=== PATIENT | female | born 1930 | race Caucasian/White ===

== ENCOUNTER 2016-07-01 17:33 | Inpatient (IN) | payer MEDICARE, OTHER ==
--- NOTE | ~2016-07-01 | US77 ---
[facility] A Service of [facility] RADIOLOGY TEXT RESULTS PATIENT: YIFAN TAFOYA LOCATION: [facility] 330- : [birth year] UNIT #: [id number] AGE: [address]: Dior Mast MD SEX: F ORDER DR: [id number] [place] [id number] [facility]. [place], [place] [address] [id number] MR#: [id number] Acc #: [id number] NAME: YIFAN TAFOYA : 1930 SEX: F STUDY DATE/TIME: 07/02/2016 11:37 UNIT: [address] ROOM: [facility] STUDY DESCRIPTION: US Kidney Bilateral Complete Attending Physician: Sonal Raines M.D. Ordering Physician: Ed Casey Jackson M.D. Primary Care Physician: Primary Care Physician No MEDICAL IMAGING REPORT This report is preliminary unless electronic signature is present EXAM Bilateral renal sonogram, 07/02/2016 CLINICAL HISTORY 86-year-old female acute kidney injury, creatinine 5.9, complains of abdominal pain. History of diabetes, hypertension. FINDINGS Examination was technically limited due to patient's limited mobility. The kidneys suggest mild increased echogenicity which could reflect medical renal disease. No significant cortical atrophy. The right kidney measures 11.4 cm in length. The left kidney measures approximately 11.8 cm in length. No hydronephrosis. Left kidney demonstrates at least 2 anechoic areas compatible with cysts. No perinephric collection identified. The visualized bladder unremarkable. IMPRESSION 1. Mild increased echogenicity of the renal parenchyma bilaterally could reflect medical renal disease but no significant cortical atrophy. No hydronephrosis. 2. Two left renal cortical cysts, the largest measuring up to 5 cm. Dictated by... Freddie Stephen M.D. THIS IS AN ELECTRONICALLY VERIFIED REPORT Freddie Stephen M.D. at 07/03/2016 5:02 PM Chacha TD: 07/03/2016 00:31 JOB #: [id number] [facility] A Service of [facility] RADIOLOGY TEXT RESULTS PATIENT: YIFAN TAFOYA LOCATION: [facility] 330-01 : [birth year] UNIT #: [id number] AGE: [address]: Dior Mast MD SEX: F ORDER DR: MEDICAL IMAGING REPORT COPY
--- NOTE | ~2016-07-01 | HP ---
Unit #: [id number] #: [id number] Patient: YIFAN TAFOYA [id number] [address] [address] [id number] I MR#: [id number] NAME: YIFAN TAFOYA ROOM: 330 Age: 86 Sex: F Admission Date: 07/01/2016 : 1930 Attending Physician: Sonal Raines M.D. Primary Care Physician: Primary Care Physician No HISTORY AND PHYSICAL CHIEF COMPLAINT Anemia. HISTORY OF PRESENT ILLNESS The patient is an 86-year-old female, brought to the emergency room from the [facility] concerning for the anemia. The patient is a poor historian and history is obtained by speaking to the patient's daughter and son at the bedside. The patient was found to have an anemia with hemoglobin of 8 with a baseline around 10, and the urinary tract infection and the creatinine of 5.7 from the baseline. The patient complains of the abdominal pain and denies any urinary complaints. The patient denies any fever, chills, nausea or vomiting, chest pain or shortness of breath. The patient's family is unable to obtain any new medication started at the half-way and the patient denies any decrease in the oral intake. The patient also has a history of atrial fibrillation on Coumadin and the INR level is 2.8. PAST MEDICAL HISTORY 1. History of coronary artery disease. 2. Dysphagia. 3. Hypertension. 4. Diabetes. 5. Cerebrovascular accident with right-sided weakness. 6. History of C. difficile colitis. 7. Anemia. 8. Anxiety. 9. Peptic ulcer disease. PAST SURGICAL HISTORY 1. History of coronary artery bypass grafting. 2. Hysterectomy. 3. Back surgery. 4. Right knee replacement. 5. Heart valve repair. 6. Cataract bilateral surgery. ALLERGIES Allergic to penicillin, sulfa, codeine, and erythromycin, and Paxil. HOME MEDICATIONS She is on: 1. Isosorbide 2. Mag ox 3. Coreg Unit #: [id number] #: [id number] Patient: YIFAN TAFOYA 4. Xanax 5. Lipitor 6. Mirtazapine 7. Pantoprazole 8. Ferrous sulfate 9. Zoloft 10. Norvasc 11. Colace 12. Lasix 13. Aspirin 14. K-Dur 15. Tylenol 16. Ultram 17. Coumadin FAMILY HISTORY Reviewed and none. SOCIAL HISTORY The patient lives at the half-way and she is a lifelong nonsmoker. She does not drink alcohol or any illicit drug abuse. REVIEW OF SYSTEMS Fourteen point review of systems performed and only pertinent positive findings as described above, remaining are negative. PHYSICAL EXAMINATION GENERAL: The patient is lying on the bed, not in acute distress. VITALS: Temperature 97.8, pulse rate 82, respiratory 16, and blood pressure 128/61, and satting 97% at three liters per nasal cannula. HEENT: Head: Atraumatic and normocephalic. Pupils equal, round, reactive to light and accommodation. Extraocular movements are intact. Bilateral pallor and dry mucous membranes. NECK: Supple, no jugular venous distention. LUNGS: Decreased air entry at the bases. HEART: Regular rate and rhythm. ABDOMEN: Soft, positive bowel sounds. EXTREMITIES: Bilateral popliteal edema, +2 to +3. : The patient has a Chavez catheter. NEURO: The patient is alert, awake, and oriented. No gross focal motor deficit. DIAGNOSTIC STUDIES LABORATORY DATA: Glucose 132, BUN 70, creatinine 5.7, sodium 136, potassium 5, chloride 105, bicarb 24, calcium 7.7, total protein 6.5, albumin 2.8, total bili 1, AST 15, ALT 7, alkaline phosphatase 70. INR is 2.8. White blood count 5.3, hemoglobin 8, hematocrit 24.6, platelets 126. Urinalysis shows 3+ leukocyte esterase, 2+ protein, 3+ blood, and innumerable urine RBCs, and innumerable WBCs, and 4+ urine bacteria. IMAGING: No imaging studies done in the emergency room, will check the chest x-ray in the morning. ASSESSMENT/PLAN 1. Acute kidney injury with a creatinine of 5.7, and urinary tract infection. 2. Anemia. 3. Atrial fibrillation. Unit #: [id number] #: [id number] Patient: YIFAN TAFOYA 4. Hematuria. Plan to admit the patient inpatient to the telemetry and continue with the IV antibiotics with Rocephin and check the renal ultrasound to rule out obstruction and will have a renal consult, and hold the Coumadin and Lasix today and repeat the labs again in the morning, and PRBC if the hemoglobin goes down less than 8, and the patient is a DNR and further recommendations will follow. Dictated by Ana Casanova TD: 07/02/2016 10:09 JOB #: [id number] HISTORY AND PHYSICAL X X HISTORY AND PHYSICAL
--- NOTE | ~2016-07-01 | CO ---
Unit #: [id number] #: [id number] Patient: YIFAN TAFOYA [id number] [address] [place], [place] [address] [id number] I MR#: [id number] NAME: YIFAN TAFOYA. ROOM: 330 Age: 86 Sex: F Admission Date: 07/01/2016 : 1930 Attending Physician: Sonal Raines M.D. CONSULTATION REPORT The patient of Dr. Raines. REASON FOR CONSULTATION Increased creatinine. HISTORY OF PRESENT ILLNESS Ms. Tafoya was sent to ER from her residential because of abnormal laboratory findings including a hemoglobin of 8 and serum creatinine of 5.9. She had been bothered with nausea for 2 or 3 days. She has not noticed any blood in her bowel movements or nor has she vomited blood. She has not noticed any change in urine volume. She has had dry mouth, but only to a small extent. She has been more bothered with shortness of breath and that does seem worse on reclining. She spends much of her day sitting and has chronic, but worsening lower extremity swelling. She denies use of nonsteroidals. Home medications are noted to include Norvasc, Lipitor, Protonix, and furosemide 40 mg daily. She has some underlying diabetes and hypertension. She also has a history of coronary artery disease with 3-vessel bypass by her report as well as mitral and aortic valve replacements. She had a brother who had end-stage renal disease associated with diabetes mellitus. She denies gross hematuria or sensation of incomplete emptying. She denies dizziness or lightheadedness. She denies active chest pain, productive cough, fever, chills, or sweats. She is not aware of any liver disease. Creatinine was 5.9 today. Reviewed old records included creatinine of 1.0 on 02/03/2016. She has not had any unusual muscle pains or red urine on statin therapy. PAST MEDICAL HISTORY 1. Coronary artery disease, prior bypass grafting. 2. Valvular heart disease with prior valve replacement. 3. History of gastrointestinal bleeding associated with gastritis with prior GI evaluation here. 4. Hypertension. 5. Type 2 diabetes. 6. Atrial fibrillation. SOCIAL HISTORY detention resident. Nonsmoker. FAMILY HISTORY Positive for end-stage renal disease in direct family member (also with diabetes). SYSTEM REVIEW Complete system review was negative or noncontributory except as noted Unit #: [id number] #: [id number] Patient: YIFAN TAFOYA above. PHYSICAL EXAMINATION GENERAL: Reveals a pleasant elderly somewhat frail-appearing female, lying in bed. VITAL SIGNS: Blood pressure 113/47, heart rate 68, respirations 18, temperature 37.3. HEENT: Conjunctivae were pale. There was no bloody nasal discharge. Oral mucous membranes are reasonably moist. NECK: Included no thyromegaly. Jugular venous pressure is difficult to evaluate. Cervical and supraclavicular adenopathy were not noted. SKIN: Warm and dry with appropriate turgor for age. LUNGS: Clear, but diminished. HEART: Reveals a systolic murmur. No pericardial rub. ABDOMEN: Protuberant, but soft and nontender with normal sounds. : Included no CVA tenderness. Bladder distention was not noted on difficult exam. VASCULAR: Included no flank bruits. EXTREMITIES: Exam revealed 2 to 3+ diffuse pitting edema. DIAGNOSTIC STUDIES LABORATORY RESULTS: Included BUN of 74, creatinine 5.9, potassium 5.0, CO2 24, calcium 8, albumin was 2.8 with a total protein of 6.5. White count was 3500, hemoglobin 7.6, platelet count 114,000. Urinalysis showed 2+ protein, 3+ leukocyte esterase, 3+ blood with innumerable red cells and white cells, and 4+ bacteria. Culture is growing a gram-negative linda at present not as yet identified and sensitivity pending. IMAGING STUDIES: Kidney ultrasound is ordered and pending. Chest x-ray shows left pericardial effusion and some congestion. ASSESSMENT 1. Acute renal failure. Nonoliguric. With creatinine of 5.9 compared to 1.0 on 02/03/2016. She does have urinary tract infection, but no severe hypotension. She does have underlying coronary and valvular heart disease, but no active angina. She is on proton pump inhibitor. We will need to exclude interstitial nephritis and we will hold that in preference of H2 kena for now. She is on statin therapy and will need to exclude rhabdomyolysis. Ultrasound was ordered to exclude obstruction. Might benefit her to allow blood pressure to trend higher and we will stop Norvasc for now. Finally with the low white count, anemia, low platelet count, generous globulin fraction, and proteinuria, we will consider and exclude paraprotein. 2. Urinary tract infection with gram-negative rods, on antibiotic therapy. Pending identification and sensitivities. 3. Volume excess with underlying heart disease. We will change Lasix to IV and reevaluate serially. 4. Coronary artery disease with past coronary artery bypass grafting. 5. Valvular heart disease with past mitral aortic valve replacement. 6. History of atrial fibrillation. 7. Diabetes mellitus. 8. Hypertension. 9. Anemia with past history of gastrointestinal blood loss. PLAN Discontinue Protonix. We will substitute Pepcid 20 mg daily. Discontinue Norvasc. Discontinue magnesium oxide. We will check CPK, urine eosinophil stain, random urine for protein-creatinine, serum and urine for Unit #: [id number] #: [id number] Patient: YIFAN TAFOYA protein immunofixation. Furosemide 40 mg q.12 hours IV for now with serial reevaluation and will check eosinophil stain. Thanks for allowing me to see Ms. Tafoya. Dictated by... Abdirizak Ruano M.D. REL/modl TD: 07/03/2016 04:36 JOB #: [id number] CONSULTATION REPORT X Abdirizak Ruano MD CONSULTATION REPORT
--- NOTE | ~2016-07-01 | CR63 ---
[facility] A Service of [facility] RADIOLOGY TEXT RESULTS PATIENT: YIFAN TAFOYA LOCATION: [facility] : [birth year] UNIT #: [id number] AGE: [address]: ANILA RAINES MD SEX: F ORDER DR: [id number] [facility] [address] [place], [place] [address] [id number] I MR#: [id number] Acc #: [id number] NAME: YIFAN TAFOYA. : 1930 SEX: F STUDY DATE/TIME: 07/02/2016 7:49 [facility] STUDY DESCRIPTION: CR Chest 2 View Attending Physician: Anila Raines M.D. Ordering Physician: Pardeep Marion M.D. MEDICAL IMAGING REPORT This report is preliminary unless electronic signature is present EXAM Chest x-ray 07/02/2016. HISTORY 86-year-old female admitted to the hospital with 1-day history of shortness of air and cough. TECHNIQUE AP and lateral upright chest series. FINDINGS Mild cardiomegaly, pulmonary venous redistribution, mild diffuse interstitial edema and small bilateral pleural effusions, larger on the left. Findings suggest vascular congestion. Postop changes prior cardiac surgery, including CABG and AVR. Similar findings are present on the previous study of 02/02/2016. IMPRESSION 1. CABG and AVR. 2. Vascular congestion with mild diffuse interstitial edema and small bilateral pleural effusions. Dictated by... Urbano Blair M.D. THIS IS AN ELECTRONICALLY VERIFIED REPORT Urbano Blair M.D. at 07/02/2016 3:06 PM RGW/pcl [facility] A Service [facility] RADIOLOGY TEXT RESULTS PATIENT: YIFAN TAFOYA LOCATION: [facility] : [birth year] UNIT #: [id number] AGE: [address]: ANILA RAINES MD SEX: F ORDER DR: TD: 07/02/2016 13:26 JOB #: [id number] MEDICAL IMAGING REPORT COPY
--- NOTE | ~2016-07-01 | OR ---
Unit #: [id number] #: [id number] Patient: YIFAN TAFOYA [id number] [address] [place], [place] [address] [id number] I MR#: [id number] NAME: YIFAN TAFOYA. ROOM: [facility] Date of Procedure: 07/04/2016 Admission Date: 07/01/2016 Surgeon: Zackary Wilburn M.D. : 1930 Attending Physician: Randolph Robles M.D. Primary Care Physician: Lety Tijerina M.D. OPERATIVE REPORT PRIMARY CARE PHYSICIAN Lety Tijerina M.D. PREOPERATIVE DIAGNOSIS Severe anemia. PROCEDURE PERFORMED Upper gastrointestinal endoscopy. POSTOPERATIVE DIAGNOSIS Completely normal examination up to third part of duodenum. RECOMMENDATIONS 1. The patient will be started on 1800 calorie CCD diet as tolerated. 2. Stool studies for occult blood. 3. She is too frail to undergo colonoscopy and at her age, this is unlikely to be of any benefit. In case of any drop in hemoglobin, suggest treating with packed cell transfusions and iron if indicated. SEDATION USED MAC. DESCRIPTION OF PROCEDURE Following detailed explanation of potential risks and complications of an upper endoscopy, namely perforation, bleeding, and complication related to sedation, the patient was brought to GI lab and laid in the left lateral decubitus position. Lubricated tip of the Olympus video upper endoscope was passed through the bite block into the proximal esophagus under direct vision. The entire esophageal mucosa was examined and appeared normal. Z-line was nicely demarcated, there being no esophagitis or hiatus hernia. The scope was then advanced into the gastric cavity and the latter was insufflated. Mucosa of the fundus, body, and antrum was examined and appeared unremarkable. Pylorus was intubated with visualization of the normal duodenal bulb and second and third part of the duodenum. Upon withdrawal and retroflexion, incisura, cardia, and greater curve were examined and no additional findings noted. The scope was then withdrawn in the distal esophagus. The entire esophageal mucosa was examined all the way up to pharynx. No additional findings noted. The patient tolerated the procedure without any postprocedure complications. Unit #: [id number] #: [id number] Patient: YIFAN TAFOYA Dictated by... Ana Ortiz TD: 07/07/2016 04:50 JOB #: [id number] OPERATIVE REPORT X Zackary Wilburn MD X PROCEDURE OPERATIVE NOTE
--- NOTE | ~2016-07-01 | CO ---
Unit #: [id number] #: [id number] Patient: YIFAN TAFOYA [id number] [address] [place], [place] [address] [id number] I MR#: [id number] NAME: YIFAN TAFOYA ROOM: 330 Age: 86 Sex: F Admission Date: 07/01/2016 : 1930 Attending Physician: Randolph Robles M.D. Primary Care Physician: Primary Care Physician No Consultation Date: 07/04/2016 CONSULTATION REPORT PRIMARY CARE PHYSICIAN Lety Tijerina M.D. REASON FOR CONSULTATION Severe anemia. HISTORY OF PRESENT ILLNESS Ms. Tafoya is a very pleasant 86-year-old extremely frail white female. The patient was admitted with acute kidney injury and anemia. She has been transferred from [facility] as a result of the latter. Her baseline hemoglobin is around 8. Her admission hemoglobin was 7.6, and BUN and creatinine were 70 and 6.1, baseline being 19 and 1.6. The patient is on long-term anticoagulation because of atrial fibrillation. She mentions extreme fatigue. At her best, her mobility is fairly limited. The patient has a past medical history of hypertension, chronic kidney disease with end-stage renal disease, family does not wish to have hemodialysis, also history of atrial fibrillation, on long-term anticoagulation with Coumadin, history of anemia secondary to renal disease, coronary artery disease, dysphagia, hypertension, diabetes, cerebrovascular accident, anxiety, and peptic ulcer disease. PAST SURGICAL HISTORY Included coronary artery bypass graft, hysterectomy, back surgery, right knee replacement, heart valve repair and bilateral cataract surgery. MEDICATIONS Before admission included Norvasc, Coreg, Xanax, Lasix, Lipitor, NovoLog insulin, Lantus insulin, ferrous sulfate, aspirin, tramadol, Protonix, Imdur, Ceftin, prednisone, Tylenol, Remeron, Zoloft and Zofran. ALLERGIES Penicillin, sulfonamides, codeine, erythromycin, and Paxil. SOCIAL HISTORY The patient is in alf. She is a lifelong nonsmoker. Never drank alcohol. FAMILY HISTORY None of colon, pancreatic cancer, or liver disease. REVIEW OF SYSTEMS Detailed review of organ systems does not reveal any recent weight loss. The patient mentioned fatigue and lethargy. No history of overt GI bleed Unit #: [id number] #: [id number] Patient: YIFAN TAFOYA in the form of hematemesis, melena, or hematochezia. No history of headache, seizures, chest pain, or syncope. No history of dysuria, hematuria, or pyuria. No history of focal seizures or extremity weakness. Rest of the review of organ systems is unremarkable. PHYSICAL EXAMINATION GENERAL: She is frail, alert and afebrile. VITAL SIGNS: Temperature 97.7, pulse 68 per minute and regular, respirations 17 per minute, blood pressure 154/86. She weighs 186 pounds. She is close to her baseline weight. HEENT: She has moderate pallor. There being no icterus, lymphadenopathy, or peripheral edema. CARDIOVASCULAR: Normal heart sounds. No murmurs on auscultation. LUNGS: Reveals normal breath sounds. Good air entry. ABDOMEN: Soft and nontender. Liver and spleen are not palpable. Bowel sounds normal. DIAGNOSTIC STUDIES LABORATORY RESULTS: Shows a hemoglobin of 7.2, baseline hemoglobin is varied between 9 and 10. The red cell indices are normochromic and normocytic. White count is 4.2 and platelet counts are normal. INR is 2.8. The serum chemistry shows a BUN and creatinine of 72 and 6.1. Her baseline is 19 and 1.6. LFTs are normal. Iron studies indicate low transferrin saturation and low TIBC indicating anemia of chronic disease. CLINICAL IMPRESSION 1. Suspect the patient has anemia of multiple etiologies including anemia of chronic disease, renal disease or possible occult gastrointestinal blood loss. She also has an Escherichia coli urinary tract infection as evidenced by urinalysis and cultures. 2. Acute kidney injury. 3. Previous history of stroke. 4. Coronary artery disease. 5. Diabetes. MANAGEMENT PLAN Suggest doing stool studies for occult blood, pursue with an upper GI endoscopy later today and any further recommendations to follow thereafter. Thank you very much for asking me to see this pleasant woman. Dictated by... Ana Ortiz/usha TD: 07/07/2016 05:07 JOB #: [id number] CC: Lety Tijerina M.D. Unit #: [id number] #: [id number] Patient: YIFAN TAFOYA CONSULTATION REPORT X Zackary Wilburn MD CONSULTATION REPORT
--- NOTE | ~2016-07-01 | DS ---
Unit #: [id number] #: [id number] Patient: YIFAN TAFOYA [id number] [address] [place], [place] [address] [id number] MR#: [id number] NAME: YIFAN TAFOYA. ROOM: 330 Age: 86 Sex: F Admission Date: 07/01/2016 : 1930 Discharge Date: 07/05/2016 Attending Physician: Randolph Robles M.D. Primary Care Physician: No Primary Care Physician DISCHARGE SUMMARY REASON FOR ADMISSION Anemia. HISTORY OF PRESENT ILLNESS/HOSPITAL COURSE The patient is an 86-year-old female brought to the emergency department after transfer from [facility] secondary to anemia. Apparently the patient was found to have a hemoglobin level of 8 with her baseline close to 10. She was also noted to have initial urinalysis positive and a creatinine elevated at 5.7. She is on chronic anticoagulation secondary to atrial fibrillation, and her INR level on admission was 2.8. She was subsequently admitted for the same. Consultation initially was placed to [facility], including Dr. Glass, who followed the patient throughout. Unfortunately, she did not show any progression in regard to her overall renal function. IV Solu-Medrol, Lasix were initiated. ATN versus acute interstitial nephritis was initial diagnosis. Routine laboratory studies were ordered and are currently pending. However, her kidney function has gradually declined through the hospital course to where her creatinine now stands at 6.9. Consideration and discussion were initiated for possible hemodialysis, which the family stated they did not want and the patient adamantly refused. Secondary to her decreased hemoglobin, we did place consultation to Dr. Wilburn of gastroenterology service on 07/04/2016. The patient underwent upper GI endoscopy, which was completely normal. After a lengthy discussion with the patient's family, including son and daughter present at bedside, as well as in accordance with the patient's wishes, she will be transferred back to [facility] in stable condition with the understanding that Hospice service will also follow her while she is there. Her overall prognosis, unfortunately, is poor secondary to chronic kidney disease likely transitioning into endstage renal disease. Her overall life expectancy is likely days to weeks. Family is well aware, and they are requesting Hospice to follow while she is at the residential. We have adjusted/modified some of her medications at time of discharge, and comfort is the family's preference at this point in time in regard to her overall treatment regimen. At the time of discharge her hemoglobin currently stands at 7.6. Her creatinine is 6.1. GFR is 6.9. Unit #: [id number] #: [id number] Patient: YIFAN TAFOYA FINAL DISCHARGE DIAGNOSES 1. Chronic kidney disease, likely endstage renal disease, with patient and family refusing/adamantly stating they do not want hemodialysis. 2. History of hypertension. 3. History of atrial fibrillation, on chronic anticoagulation, which will be discontinued at time of discharge. 4. Anemia likely secondary to chronic disease from kidney disease. 5. Coronary artery disease. 6. Dysphagia. 7. Hypertension. 8. Diabetes. 9. Cerebrovascular accident history with right-sided weakness. 10. Anxiety. 11. Peptic ulcer disease. 12. Prior history of coronary artery bypass graft. DISCHARGE MEDICATIONS 1. Norvasc 10 mg p.o. daily. 2. Coreg 25 mg p.o. b.i.d. 3. Xanax 0.25 mg p.o. b.i.d. p.r.n. 4. Lasix 80 mg p.o. b.i.d. 5. Lipitor 40 mg p.o. q.h.s. 6. NovoLog 5 units t.i.d. with meals. 7. Lantus 5 units subcu q.h.s. 8. Iron/ferrous sulfate 1 tablet p.o. daily. 9. Aspirin 81 mg daily. 10. Tramadol 50 mg p.o. q.6 p.r.n. 11. Protonix 40 mg p.o. daily. 12. Imdur 60 mg p.o. daily. 13. Ceftin 250 mg p.o. b.i.d. x5 days. 14. Prednisone 40 mg p.o. daily x4 days, then 30 mg p.o. daily x4 days, then 20 mg p.o. daily x4 days. 15. Tylenol 650 mg p.o. q.6 p.r.n. 16. Remeron 7.5 mg p.o. q.h.s. 17. Zoloft 50 mg p.o. q.a.m. 18. Zofran 4 mg p.o. q.8 p.r.n. DISCHARGE CONDITION Stable. DISCHARGE DISPOSITION [facility] with Hospice care. LONG-TERM PROGNOSIS Poor; family well aware. NOTE: Time spent in the coordination of this discharge, chart review, discussion with the patient's family, as well as medication management is greater than 55 minutes. Dictated by... Ana Hannah/bryon Unit #: [id number] #: [id number] Patient: YIFAN TAFOYA Annie TD: 07/05/2016 11:21 JOB #: [id number] DISCHARGE SUMMARY X Randolph Robles MD X DISCHARGE SUMMARY
[2016-07-01 17:18] LABS: BASOPHIL% 0.8 % (0-2.5); EOSINOPHIL# 0.7 X10e3 (0-0.7); EOSINOPHIL% 12.9 % (0.0-7.0); HEMATOCRIT 24.6 % (35.0-45.0); LYMPHOCYTE# 1.3 X10e3 (1.0-3.5); LYMPHOCYTE% 23.5 % (17.0-45.0); MEAN CORPUSCULAR HGB CONC 32.5 g/dL (30-36); MEAN PLATELET VOLUME 8.4 FL (6.5-11.5); MONOCYTE# 0.4 X10e3 (0-1.0); MONOCYTE% 7.3 % (3.0-12.0); NEUTROPHIL% 55.5 % (40-75); PLATELET COUNT 126 X10e3 (140-420); RED BLOOD COUNT 2.86 X10e (3.90-5.30); RED CELL DISTRIBUTION WIDTH 16.4 % (11.0-15.5); WHITE BLOOD COUNT 5.3 X10e3 (4.0-10.5)
[2016-07-01 17:19] LABS: DIFF IND NO
[~2016-07-01 17:33] MED LIST: ACETAMINOPHEN PO; ALPRAZOLAM PO; ASPIRIN81 MG PO; ATIVAN0.5 M1; BAYER CHEWABLE81 MG PO; BUMEX; CARVEDILOL25 MG PO; COUMADIN1 MG PO; DOCUSATE SODIU100 MG PO; ELIQUIS2.5 MG; ELIQUIS2.5 MG PO; FLONASE 0.05% N16 G1; FLORASTOR250 M1; GLUCOTROL; HUMALOG100 U/M1; HUMALOG100 U/ML; IMDUR-ER30 M1 PO; IMDUR-ER60 M1 PO; IRON TABLETS1 TAB; K-DUR10 MEQ PO; K-DUR20 ME1 PO; K-DUR20 ME2 PO; LANTUS100 U/M1 SQ; LANTUS100 U/ML; LANTUS100 U/ML SUBQ; LASIX PO; LIPITOR40 MG PO; LOPRESSOR; MAG-OX 400400 M1 PO; METOPROLOL SUCC25 MG PO; MIRTAZAPINE7.5 MG PO; NEURONTIN100 MG; NORVASC10 MG PO; NOVOLOG100 U/ML; NOVOLOG100 U/ML SUBQ; PHENERGAN12.5 MG PO; PHENERGAN25 M1 PO; PRILOSEC; PROTONIX PO; QUESTRAN PACK4 G/PK1 PO; RANEXA500 MG PO; REGLAN; SIMVASTATIN40 MG PO; SINGULAIR; TOPROL XL; TUMS500 M1 PO; ULTRAM PO; ZAROXOLYN10 MG; ZOCOR; ZOFRAN ODT4 MG PO; ZOFRAN PO; ZOFRAN4 MG/5 ML IM; ZOLOFT PO; ZOLOFT50 MG PO
[2016-07-01 17:34] LABS: INR 2.8; PARTIAL THROMBOPLASTIN TIME 40.4 SECONDS (23.5-31.3)
[2016-07-01 17:40] LABS: ALBUMIN SERUM 2.8 g/dL (3.5-5.0); BILIRUBIN, DIRECT 0.3 mg/dL (0.0-0.2); BILIRUBIN,INDIRECT 0.7 mg/dL (0.0-0.9); BUN/CREATININE RATIO 12.98; CALCIUM SERUM 7.7 mg/dL (8.4-10.2); CREATININE SERUM 5.7 mg/dL (0.6-1.4); GLOM FILT RATE Estimated 7.5 mL/min (>60); PROTEIN TOTAL SERUM 6.5 g/dL (6.0-8.3)
[2016-07-01 17:43] LABS: URINE SOURCE CLEAN CATCH
[2016-07-01 17:52] LABS: URINE APPEARANCE TURBID; URINE BILIRUBIN NEG (NEG); URINE BLOOD 3+ (NEG); URINE COLOR ORANGE; URINE GLUCOSE NEG (NEG); URINE KETONE NEG (NEG); URINE LEUKOCYTE ESTERASE 3+ (NEG); URINE NITRATE NEG (NEG); URINE PROTEIN 2+ (NEG); URINE SPECIFIC GRAVITY 1.012 (1.003-1.035); URINE UROBILINOGEN 0.2 MG/DL (NEG)
[2016-07-01 17:55] LABS: CULTURE INDICATED? YES; URBCS1 AUWI INNUM /[HPF] (0-2); URINE BACTERIA AUWI 4+ (NEGATIVE); URINE SQUAMOUS EPITHELIAL CELL OCC /[HPF]; UWBCS1 AUWI INNUM (0-5)
[2016-07-01] MEDS ORDERED: PROTONIX PO (18:29)
[2016-07-01] MEDS ORDERED: DOK100 MG PO (18:30)
[2016-07-01] MEDS ORDERED: IRON325 ( 651 PO (18:30)
[2016-07-01] MEDS ORDERED: FUROSEMIDE40 MG PO (18:31)
[2016-07-01] MEDS ORDERED: ALPRAZOLAM PO ×2 (18:31→18:32)
[2016-07-01] MEDS ORDERED: ZOFRAN ODT4 MG PO (18:32)
[2016-07-01] MEDS ORDERED: COUMADIN1 MG PO (18:33)
[2016-07-01] MEDS ORDERED: NOVOLOG100 U/ML SUBQ (18:37)
[2016-07-02 05:47] LABS: HEMATOCRIT 22.9 % (35.0-45.0); HEMOGLOBIN 7.6 gm/dL (12.0-16.0); MEAN CELL VOLUME 85.8 FL (83-96); MEAN CORPUSCULAR HEMOGLOBIN 28.5 PG (28-34); MEAN CORPUSCULAR HGB CONC 33.2 g/dL (30-36); MEAN PLATELET VOLUME 8.9 FL (6.5-11.5); RED BLOOD COUNT 2.67 X10e (3.90-5.30); RED CELL DISTRIBUTION WIDTH 16.9 % (11.0-15.5); WHITE BLOOD COUNT 3.5 X10e3 (4.0-10.5)
[2016-07-02 06:28] LABS: BUN/CREATININE RATIO 12.54; CREATININE SERUM 5.9 mg/dL (0.6-1.4); GLOM FILT RATE Estimated 7.2 mL/min (>60)
[2016-07-02 20:19] LABS: CREATININE,RANDOM URINE 67 mg/dL; TOTAL PROTEIN,RANDOM URINE 71 mg/dl (<10)
[2016-07-03 06:35] LABS: HEMATOCRIT 23.2 % (35.0-45.0); HEMOGLOBIN 7.7 gm/dL (12.0-16.0); MEAN CELL VOLUME 86.6 FL (83-96); MEAN CORPUSCULAR HEMOGLOBIN 28.7 PG (28-34); MEAN CORPUSCULAR HGB CONC 33.1 g/dL (30-36); MEAN PLATELET VOLUME 8.3 FL (6.5-11.5); RED BLOOD COUNT 2.68 X10e (3.90-5.30); WHITE BLOOD COUNT 4.2 X10e3 (4.0-10.5)
[2016-07-03 06:38] LABS: PROTHROMBIN TIME (PATIENT) 32.4 SECONDS (9.6-11.5)
[2016-07-03 07:26] LABS: ALBUMIN SERUM 2.5 g/dL (3.5-5.0); BUN/CREATININE RATIO 12.37; CALCIUM SERUM 7.9 mg/dL (8.4-10.2); CREATININE SERUM 5.9 mg/dL (0.6-1.4); GLOM FILT RATE Estimated 7.2 mL/min (>60); MAGNESIUM 1.9 mg/dL (1.6-3.0); PHOSPHOROUS 5.1 mg/dL (2.5-4.6); POTASSIUM 4.7 mmol/L (3.5-5.1)
[2016-07-03 11:55] LABS: URINE APPEARANCE TURBID; URINE BILIRUBIN NEG (NEG); URINE BLOOD 3+ (NEG); URINE COLOR YELLOW; URINE GLUCOSE NEG (NEG); URINE KETONE NEG (NEG); URINE LEUKOCYTE ESTERASE 3+ (NEG); URINE NITRATE NEG (NEG); URINE PROTEIN 1+ (NEG); URINE SPECIFIC GRAVITY 1.013 (1.003-1.035); URINE UROBILINOGEN 0.2 MG/DL (NEG)
[2016-07-03 11:59] LABS: URBCS1 AUWI 200-300 /[HPF] (0-2); URINE BACTERIA AUWI NEG (NEGATIVE); URINE SQUAMOUS EPITHELIAL CELL MOD /[HPF]; UWBCS1 AUWI INNUM (0-5)
[2016-07-03 12:04] LABS: URINE MUCUS PRESENT
[2016-07-03 18:36] LABS: HEMATOCRIT 22.4 % (35.0-45.0); HEMOGLOBIN 7.3 gm/dL (12.0-16.0)
[2016-07-04 00:47] LABS: HEMATOCRIT 22.4 % (35.0-45.0); HEMOGLOBIN 7.2 gm/dL (12.0-16.0)
[2016-07-04 08:56] LABS: HEMATOCRIT 22.6 % (35.0-45.0); HEMOGLOBIN 7.5 gm/dL (12.0-16.0); MEAN CELL VOLUME 86.7 FL (83-96); MEAN CORPUSCULAR HEMOGLOBIN 28.9 PG (28-34); MEAN CORPUSCULAR HGB CONC 33.3 g/dL (30-36); MEAN PLATELET VOLUME 8.5 FL (6.5-11.5); RED BLOOD COUNT 2.61 X10e (3.90-5.30); RETICULOCYTE 0.7 % (0.5-2.8); WHITE BLOOD COUNT 4.1 X10e3 (4.0-10.5)
[2016-07-04 09:04] LABS: INR 2.8; PROTHROMBIN TIME (PATIENT) 30.1 SECONDS (9.6-11.5)
[2016-07-04 09:23] LABS: HEMATOCRIT 22.9 % (35.0-45.0); HEMOGLOBIN 7.6 gm/dL (12.0-16.0)
[2016-07-04 09:41] LABS: ALBUMIN SERUM 2.7 g/dL (3.5-5.0); BILIRUBIN,TOTAL 0.6 mg/dL (0.2-2.0); BUN/CREATININE RATIO 11.45; CALCIUM SERUM 7.8 mg/dL (8.4-10.2); CREATININE SERUM 6.2 mg/dL (0.6-1.4); GLOM FILT RATE Estimated 6.8 mL/min (>60); MAGNESIUM 1.9 mg/dL (1.6-3.0); POTASSIUM 4.3 mmol/L (3.5-5.1); PROTEIN TOTAL SERUM 5.9 g/dL (6.0-8.3)
[2016-07-04 10:01] LABS: BUN/CREATININE RATIO 11.47; CALCIUM SERUM 7.9 mg/dL (8.4-10.2); CREATININE SERUM 6.1 mg/dL (0.6-1.4); GLOM FILT RATE Estimated 6.9 mL/min (>60); POTASSIUM 4.4 mmol/L (3.5-5.1)
[2016-07-04 12:27] LABS: IRON SERUM 33 ug/dL (28-170); TOTAL IRON BINDING CAPACITY 203 ug/dL (269-535); TRANSFERRIN 145 mg/dL (192-382); TRANSFERRIN SATURATION 16 % (20-50)
[2016-07-04 20:18] LABS: HEMATOCRIT 25.8 % (35.0-45.0); HEMOGLOBIN 8.4 gm/dL (12.0-16.0)
[2016-07-04 23:19] LABS: URINE APPEARANCE CLEAR; URINE BILIRUBIN NEG (NEG); URINE BLOOD 3+ (NEG); URINE COLOR YELLOW; URINE GLUCOSE NEG (NEG); URINE KETONE NEG (NEG); URINE LEUKOCYTE ESTERASE TRACE (NEG); URINE NITRATE NEG (NEG); URINE PROTEIN TRACE (NEG); URINE SPECIFIC GRAVITY 1.011 (1.003-1.035); URINE UROBILINOGEN 0.2 MG/DL (NEG)
[2016-07-04 23:22] LABS: U HYALINE CASTS AUWI 0-2 /[LPF]; URBCS1 AUWI INNUM /[HPF] (0-2); URINE BACTERIA AUWI NEG (NEGATIVE); URINE SQUAMOUS EPITHELIAL CELL NONE SEEN /[HPF]
[2016-07-05 05:35] LABS: HEMATOCRIT 23.4 % (35.0-45.0); HEMOGLOBIN 7.6 gm/dL (12.0-16.0); MEAN CORPUSCULAR HEMOGLOBIN 27.9 PG (28-34); MEAN CORPUSCULAR HGB CONC 32.5 g/dL (30-36); MEAN PLATELET VOLUME 8.4 FL (6.5-11.5); RED BLOOD COUNT 2.72 X10e (3.90-5.30); RED CELL DISTRIBUTION WIDTH 17.3 % (11.0-15.5); WHITE BLOOD COUNT 2.6 X10e3 (4.0-10.5)
[2016-07-05 06:26] LABS: ALBUMIN SERUM 2.5 g/dL (3.5-5.0); BILIRUBIN,TOTAL 1.1 mg/dL (0.2-2.0); BUN/CREATININE RATIO 11.8; CALCIUM SERUM 7.7 mg/dL (8.4-10.2); CREATININE SERUM 6.1 mg/dL (0.6-1.4); GLOM FILT RATE Estimated 6.9 mL/min (>60); MAGNESIUM 1.8 mg/dL (1.6-3.0); PHOSPHOROUS 5.7 mg/dL (2.5-4.6); POTASSIUM 4.2 mmol/L (3.5-5.1); PROTEIN TOTAL SERUM 5.5 g/dL (6.0-8.3)
[2016-07-07 03:11] LABS: COMPLEMENT C3 99 mg/dL (90-180); COMPLEMENT C4 26 mg/dL (16-47)
[2016-07-08 22:11] LABS: ANA SCREEN Negative (Negative); MYELOPEROXIDASE AB (PNL) <1.0 AI (<1.0); PROTEINASE-3 AB (PNL) <1.0 AI (<1.0)
== END 2016-07-05 14:27 | DRG 683 ==
LOC: CED 17:33 → CEDOF 19:15 → C3A PCU 22:00
PROVIDERS: Emergency Medicine; Family Medicine; Internal Medicine; Internal Medicine Nephrology
PROC: B24BZZZ Ultrasonography of Heart with Aorta (ICD-10-PCS; principal; 2016-07-03)
PROC: 0DJ08ZZ Inspection of Upper Intestinal Tract, Via Natural or Artificial Opening Endoscopic (ICD-10-PCS; 2016-07-04)
DX: N17.0 Acute kidney failure with tubular necrosis (principal); I12.0 Hypertensive chronic kidney disease with stage 5 chronic kidney disease or end stage renal disease; E11.22 Type 2 diabetes mellitus with diabetic chronic kidney disease; I48.91 Unspecified atrial fibrillation; R13.10 Dysphagia, unspecified; N39.0 Urinary tract infection, site not specified; Z51.5 Encounter for palliative care; N18.6 End stage renal disease; D63.1 Anemia in chronic kidney disease; I25.10 Atherosclerotic heart disease of native coronary artery without angina pectoris; Z86.73 Personal history of transient ischemic attack (TIA), and cerebral infarction without residual deficits; F41.9 Anxiety disorder, unspecified; K27.9 Peptic ulcer, site unspecified, unspecified as acute or chronic, without hemorrhage or perforation; Z95.1 Presence of aortocoronary bypass graft; Z79.82 Long term (current) use of aspirin; Z79.01 Long term (current) use of anticoagulants; Z88.1 Allergy status to other antibiotic agents; Z88.2 Allergy status to sulfonamides; Z88.5 Allergy status to narcotic agent; Z88.8 Allergy status to other drugs, medicaments and biological substances; Z96.651 Presence of right artificial knee joint; R31.9 Hematuria, unspecified; Z66 Do not resuscitate; B96.89 Other specified bacterial agents as the cause of diseases classified elsewhere
CPT/HCPCS: 36415; 51701; 71020; 76770; 80048; 80053; 80069; 80076; 81003; 82550; 82570; 82607; 82728; 82947; 83540; 83550; 83615; 83735; 84100; 84156; 85014; 85018; 85025; 85027; 85044; 85610; 85730; 86021; 86038; 86039; 86160; 86334; 86335; 86850; 86900; 86901; 87086; 87088; 87186; 89190; 93306; 94760; 96365; 96375; 99285; J0696; J1815; J1940; J2405; J2916